=== PATIENT | female | born 1955 | race Caucasian/White ===

== ENCOUNTER → 2018-06-02 07:35 | Outpatient (CLI) | payer OTHER, SELFPAY ==
--- NOTE | 2018-06-02 07:39 | BI_ITS ---
MAMMOGRAPHY - BILATERAL SCREENING REASON FOR EXAM: Female, 62 years old. Routine annual screening examination. PERTINENT HISTORY: Non-contributory. TECHNIQUE: Digital bilateral breast erasto (3D mammographic acquisition) in the CC and MLO projections. 2-D mediolateral oblique (MLO) and craniocaudad (CC) views of both breasts were obtained. CAD: Full Field Digital Mammography with Computer Added Detection was performed. COMPARISON: Comparison is made with prior study dated May 14, 2017 and May 22, 2015. FINDINGS: Breast Composition: There are scattered areas of fibroglandular density. There are no dominant masses or suspicious calcifications. Stable bilateral axillary lymph nodes. No other significant abnormalities are identified. There has been no significant change since the prior study. BI/SCREENING MAMM (CAD), BILAT IMPRESSION: Stable bilateral screening mammogram. Yearly follow-up mammogram recommended. (A) ASSESSMENT CATEGORY: BIRADS Category 2: Benign. A letter regarding these results will be sent to the patient by the facility within 30 days. Approximately 10% of breast cancers are not detected by mammography. A normal mammogram should not delay biopsy of a clinically suspicious abnormality. [id number] Electronically Signed: Cordell Dai MD at 8:36 EDT Tel [phone], Service support ,
== END ==
PROVIDERS: Family Provider Family Medicine; PCP Family Medicine; Visit Provider Family Medicine
DX: Z12.31 Encounter for screening mammogram for malignant neoplasm of breast (principal)
CPT/HCPCS: 77063; 77067

== ENCOUNTER → 2018-11-30 16:20 | Outpatient (CLI) | payer OTHER, SELFPAY ==
--- NOTE | 2018-11-30 16:20 | MRI_ITS ---
STUDY: MRI LEFT FOREFOOT WITHOUT CONTRAST REASON FOR EXAM: Female, 63 years old. Pain. TECHNIQUE: Standardized fat and water weighted pulse sequences were obtained in all 3 orthogonal planes. COMPARISON: None. FINDINGS: There is degenerative arthrosis of the metatarsophalangeal joint of the hallux. There is cystic change in edema of the first metatarsal head and base of the first proximal phalanx Normal tibial and fibular sesamoids, with normal sesamoids-first metatarsal articulations. Normal interphalangeal joint of the hallux. Normal proximal and distal phalanges of the great toe. Normal medial and lateral heads of the flexor hallucis brevis tendons. Normal flexor and extensor hallucis longus tendons. Normal second through fifth metatarsophalangeal (MTP) joints. Normal interphalangeal joints of the second through fifth toes. Normal proximal, middle and distal phalanges of the second through fifth toes. There is intermetatarsal bursitis of the third interspace. There is adjacent 1.2 cm interdigital neuroma, series 3 image 17/36 Normal flexor and extensor tendons of the second through fifth toes. Normal visualized metatarsi. Normal intrinsic muscles of the forefoot. 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 Electronically Signed: Kailash Tay MD at 22:59 EDT , Service support ,
--- NOTE | 2018-11-30 16:20 | MRI_ITS ---
STUDY: MRI RIGHT FOREFOOT WITHOUT CONTRAST REASON FOR EXAM: Female, 63 years old. Pain. Evaluate neuroma. TECHNIQUE: Standardized fat and water weighted pulse sequences were obtained in all 3 orthogonal planes. COMPARISON: None. FINDINGS: There is degenerative arthrosis of the metatarsophalangeal joint of the hallux. Normal tibial and fibular sesamoids, with normal sesamoids-first metatarsal articulations. Normal interphalangeal joint of the hallux. Normal proximal and distal phalanges of the great toe. Normal medial and lateral heads of the flexor hallucis brevis tendons. Normal flexor and extensor hallucis longus tendons. Normal second through fifth metatarsophalangeal (MTP) joints. Normal interphalangeal joints of the second through fifth toes. Normal proximal, middle and distal phalanges of the second through fifth toes. There is intermetatarsal bursitis of the second and third interspaces, series 5 image 14/23. There is 0.6 cm interdigital neuroma at the second interspace, series 2 image 18/36. There is 0.9 cm interdigital neuroma at the third interspace, series 2 image 17/36. Normal flexor and extensor tendons of the second through fifth toes. Normal visualized metatarsi. Normal intrinsic muscles of the forefoot. 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 Electronically Signed: Kailash Tay MD at 22:54 EDT , Service support ,
== END ==
PROVIDERS: Family Provider Family Medicine; PCP Family Medicine; Referring Provider Podiatrist; Visit Provider Podiatrist
DX: G57.63 Lesion of plantar nerve, bilateral lower limbs (principal); D36.10 Benign neoplasm of peripheral nerves and autonomic nervous system, unspecified
CPT/HCPCS: 73718

== ENCOUNTER → 2020-09-18 12:36 | Outpatient (CLI) | payer MEDICARE, OTHER, SELFPAY ==
--- NOTE | 2020-09-18 12:40 | BI_ITS ---
MAMMOGRAPHY - BILATERAL SCREENING REASON FOR EXAM: Female, 64 years old. Routine annual screening examination. PERTINENT HISTORY: Non-contributory. TECHNIQUE: Digital bilateral breast aylin (3D mammographic acquisition) in the CC and MLO projections. 2-D mediolateral oblique (MLO) and craniocaudad (CC) views of both breasts were obtained. CAD: Full Field Digital Mammography with Computer Added Detection was performed. COMPARISON: Comparison is made with prior study dated 06/02/2018 and 05/14/2017. FINDINGS: Breast Composition: There are scattered areas of fibroglandular density. There are no dominant masses or suspicious calcifications. Stable benign-appearing bilateral axillary lymph nodes. No other significant abnormalities are identified. There has been no significant change since the prior study. BI/SCRN MAMM (CAD)W/AYLIN BILAT IMPRESSION: Stable bilateral screening mammogram. Yearly follow-up mammogram recommended. (A) ASSESSMENT CATEGORY: BIRADS Category 2: Benign. A letter regarding these results will be sent to the patient by the facility within 30 days. Approximately 10% of breast cancers are not detected by mammography. A normal mammogram should not delay biopsy of a clinically suspicious abnormality. [id number] Electronically Signed: Cordell Dai MD at 13:39 EST , Service support ,
== END ==
PROVIDERS: PCP Family Medicine; Referring Provider Family Medicine; Visit Provider Nurse Practitioner Family
DX: Z12.31 Encounter for screening mammogram for malignant neoplasm of breast (principal)
CPT/HCPCS: 77063; 77067

== ENCOUNTER → 2021-04-16 09:41 | Outpatient (CLI) | payer MEDICARE, OTHER, SELFPAY ==
--- NOTE | 2021-04-16 09:50 | RAD_ITS ---
STUDY: X-RAY - ESOPHAGUS (BARIUM SWALLOW) WITH FLUOROSCOPY REASON FOR EXAM: Female, 65 years old. DYSPHAGIA. TECHNIQUE: 19 view(s) of the esophagus were obtained following swallowing of barium. FLUOROSCOPY TIME (if supplied): (25 seconds) minutes/seconds COMPARISON: Comparison is made with prior study dated 03/02/2017. FINDINGS: There is no demonstrated esophageal foreign body. There is no demonstrated stricture or mucosal abnormality. Normal gastroesophageal junction, without a demonstrated hiatal hernia. The patient ingested a 12 mm tablet of barium without any difficulty. Normal visualized aortic arch and descending thoracic aorta. Normal visualized pulmonary parenchyma. Normal visualized osseous structures of the thorax. RAD/Esophagus Dual Contrast IMPRESSION: Normal plain film x-ray examination (barium swallow) of the esophagus. Electronically Signed: Cordell Dai MD at 8:34 EDT , Service support ,
== END ==
PROVIDERS: PCP Family Medicine; Referring Provider Otolaryngology Otolaryngology/Facial Plastic Surgery; Visit Provider Otolaryngology Otolaryngology/Facial Plastic Surgery
DX: R13.10 Dysphagia, unspecified (principal)
CPT/HCPCS: 74220; 74221

== ENCOUNTER 2021-04-25 19:25 | Emergency (ER) | payer MEDICARE, OTHER, SELFPAY ==
[2021-04-25 19:26] VITALS: BP 153/85; PULSE 68; RESP 17; TEMP 36.4; O2SAT 100; BMI 25.8
--- NOTE | 2021-04-25 20:17 | EX.ED.DYSGE1 ---
HPI History of Present Illness Chief Complaint: Chest Other Informant: patient Narrative Narrative: 65-year-old female presents to the emergency department with a sensation that she is being squeezed across her lower chest upper abdomen. She states that little over a month ago she went for a well check and they found a nodule on her neck. Chest CT scan was negative and she was referred to ENT. She is also experiencing some hoarseness. She states she had a ENT scope and a barium swallow. She was placed on Nexium. She states that when she eats she gets this squeezing sensation and sometimes she will vomit. She notes that she had a hamburger today and yesterday had pizza. These types of meals seem to make her symptoms worse she states that yesterday seem to be more intense and today was the worst. She ate around 1 this afternoon. She is mentally trying to eat 1 time per day because of how poorly she feels. [facility] Medical History (Updated 04/26/21 @ 00:[address] Geronimo Mao, DO) GERD (gastroesophageal reflux disease) Hypertension Home Medications aspirin 81 mg PO DAILY@0800 05/20/17 [History Last Taken 05/21/17] calcium carbonate-vitamin D3 [Calcium 500-Vit D3 200 Tablet] 1 ea PO DAILY 05/20/17 [History Last Taken Unknown] clopidogrel 75 mg PO DAILY 05/20/17 [History Last Taken 05/21/17] conjugated estrogens [Premarin] 0.9 mg PO DAILY 05/20/17 [History Last Taken Unknown] esomeprazole magnesium [Nexium] 40 mg PO DAILY 05/20/17 [History Last Taken Unknown] isosorbide mononitrate 30 mg PO DAILY 05/20/17 [History Last Taken 05/21/17] metoprolol tartrate 25 mg PO BID 05/20/17 [History Last Taken 05/21/17] multivitamin [Daily Multiple Vitamin] 1 ea PO DAILY 05/20/17 [History Last Taken Unknown] hydrocodone-acetaminophen 1 tab PO Q6H PRN PRN 3 Days #12 tablet 04/26/21 [Rx Last Taken Unknown] ondansetron 4 mg PO Q6H PRN PRN #15 tab 04/26/21 [Rx Last Taken Unknown] Allergy/AdvReac Type Severity Reaction Status Date / Time oxytetracycline Allergy Unknown Verified 04/25/21 19:30 [From Terramycin] Penicillins Allergy Unknown Verified 04/25/21 19:30 succinylcholine Allergy Unknown Verified 04/25/21 19:30 [From Anectine] Sulfa (Sulfonamide Allergy Rash Verified 04/25/21 19:30 Antibiotics) Surgical History H/O: hysterectomy Social History (Updated 04/25/21 @ 20:[address] Geronimo Mao, DO) Smoking Status: Never smoker substance use type: does not use ROS ROS ED Constitutional Constitutional ED: Denies chills or weight loss Eyes Eyes: Denies change in vision or diplopia ENT ENT ED: Denies ear pain, rhinorrhea or sore throat Cardiovascular Cardiovascular: Reports chest pain; Denies orthopnea, palpitations or racing heartbeat Respiratory/Chest Respiratory/Chest: Denies cough, dyspnea or orthopnea Gastrointestinal Gastrointestinal: Reports abdominal pain, nausea and vomiting; Denies diarrhea Genitourinary Genitourinary ED: Denies dysuria, hematuria or urinary frequency Musculoskeletal Musculoskeletal: Denies arthralgias or myalgias Integumentary Denies abscess or rash Neurologic Neurologic: Denies headache(s) or weakness Psychiatric Psychiatric: Denies anxiety, depression, suicidal ideation or suicidal thoughts Endocrine Endocrinology: Denies polydipsia, polyphagia or polyuria Allergic/Immunologic Allergic/Immunologic ED: Denies mouth swelling, tongue swelling or urticaria EXAM Physical Exam Const Vital Signs: 04/25/21 19:26 04/25/21 20:33 04/25/21 21:44 Temperature 97.6 F L Temperature Source Temporal Pulse Rate 68 68 Respiratory Rate 17 18 Respiratory Effort Normal Respiratory Pattern Normal Blood Pressure 153/85 H 161/61 H Blood Pressure Mean 107 94 Pulse Ox 100 100 Oxygen Delivery Method Room Air Room Air 04/25/21 23:25 Temperature Temperature Source Pulse Rate 70 Respiratory Rate 16 Respiratory Effort Respiratory Pattern Blood Pressure 157/66 H Blood Pressure Mean 96 Pulse Ox 98 Oxygen Delivery Method Room Air Positive well nourished and well developed General Appearance ED: well developed HEENT Reports normocephalic, head/scalp atraumatic and moist mucous membranes Eyes PERRL and EOMs intact bilaterally Neck no lymphadenopathy, supple and no JVD Resp normal respiratory effort and clear to auscultation bilaterally Cardio regular rate, regular rhythm and no murmurs GI GI Narrative: Patient reports pain in the right upper quadrant to palpation. My push on the left lower quadrant she tells me it hurts in her epigastrium and mid sternum. Palpation: soft Back/Spine no CVA tenderness and normal ROM Extremity normal to inspection General Extremety ED: Negative for edema General Extremity: Negative for edema Neuro oriented x3 and CN's II-XII intact bilaterally Sensorium / Orientation: alert Motor Exam: strength 5/5 throughout Psych mental status grossly normal Mood & Affect: anxious; Negative for depressed or tearful Skin no rashes or lesions noted and no wounds MDM MDM MDM Narrative Medical decision making narrative: White count 12.6. Gallbladder ultrasound showed a gallbladder wall at 3. No pericholecystic fluid and small possible sludge. Common bile duct at 5. Patient received a GI cocktail and said that her symptoms got better but the pain came back so she received morphine. CT the pelvis does not show anything obvious. Trace pericholecystic fluid noted on the CT but not on the ultrasound. Patient will most likely need endoscopy and HIDA scan. I will write for pain and nausea medication. Case was discussed with on-call surgeon Dr. Shin. Lab Data Attestation: I reviewed the patient's lab results. Labs: Laboratory Results - last 24 hr 04/25/21 04/25/21 20:28 20:28 WBC 12.6 H RBC 4.09 L Hgb 12.7 Hct 37.9 MCV 92.7 MCH 31.1 MCHC 33.5 RDW Std Deviation 42.5 RDW Coeff of Sherman 12.5 Plt Count 232 MPV 10.7 Immature Gran % (Auto) 0.300 Neut % (Auto) 81.6 H Lymph % (Auto) 11.0 L Mcdonald % (Auto) 6.3 Eos % (Auto) 0.3 Baso % (Auto) 0.5 Absolute Neuts (auto) 10.3 H Absolute Lymphs (auto) 1.39 Nucleated RBC % 0 Sodium 137 Potassium 3.2 L Chloride 103 Carbon Dioxide 24.0 Anion Gap 10 BUN 10 Creatinine 1.06 H Estim Creat Clear Calc 52.66 Est GFR (MDRD) Af Amer 67 Est GFR (MDRD) Non-Af 55 L BUN/Creatinine Ratio 9.4 L Glucose 128 H Calcium 8.9 Total Bilirubin 0.60 AST 15 ALT 14 Alkaline Phosphatase 77 Troponin I High Sens 5 Total Protein 7.7 Albumin 3.6 Globulin 4.1 Albumin/Globulin Ratio 0.9 Lipase 108 Radiography Diagnostic Testing: Radiology Impression Gallbladder Ultrasound 04/25/21 20:20 IMPRESSION: Borderline gallbladder thickness with minimal sludge. Positive sonographic Hathaway''s sign. Electronically Signed: Barrymari Bangura at 21:39 EDT Tel [phone], Service support , Chest X-Ray 04/25/21 21:12 IMPRESSION: Normal x-ray examination of the chest. Electronically Signed: Barry Bangura DO at 22:07 EDT Tel [phone], Service support , Abdomen/Pelvis CT 04/25/21 22:05 IMPRESSION: Hepatic cysts. Mild wall thickening of the gallbladder. Mild dilatation of the common bile duct. Trace pericholecystic fluid. Electronically Signed: Barry Bangura DO at 23:32 EDT Tel [phone], Service support , EKG Initial EKG: Attestation: I personally reviewed and interpreted this EKG as follows: Comments: Sinus rhythm at a rate of 70 bpm. No concerning features of ACS or ectopy noted Discharge Plan Triage Chief Complaint: Chest Other ED Provider: Geronimo Moa Dx/Rx/DC Orders Clinical Impression: Abdominal pain Instructions: HIDA Scan Prescriptions: New hydrocodone-acetaminophen [hydrocodone-acetaminophen] 1 TABLET tablet 1 tab PO Q6H PRN PRN (Reason: Pain) 3 Days Qty: 12 RF: 0 ondansetron [ondansetron] 4 MG tablet 4 mg PO Q6H PRN PRN (Reason: Nausea) Qty: 15 RF: 0 No Action multivitamin [Daily Multiple] 1 EACH tablet 1 ea PO DAILY RF: 0 isosorbide mononitrate 30 MG tablet extended release 24 hr 30 mg PO DAILY RF: 0 clopidogrel 75 MG tablet 75 mg PO DAILY RF: 0 aspirin 81 MG tablet 81 mg PO DAILY@0800 RF: 0 conjugated estrogens [Premarin] 0.9 MG tablet 0.9 mg PO DAILY RF: 0 esomeprazole magnesium [Nexium] 40 MG capsule 40 mg PO DAILY RF: 0 metoprolol tartrate 25 MG tablet 25 mg PO BID RF: 0 calcium carbonate-vitamin D3 [Calcium 500 + D] 1 EACH tablet 1 ea PO DAILY RF: 0 Primary Care Provider: Balwinder Clayton Referrals: Balwinder Clayton MD [Primary Care Provider] - Geronimo Shin MD [STAFF PHYSICIAN] - As soon as possible (To discussed endoscopy (EGD) and HIDA scan)
--- NOTE | 2021-04-25 20:19 | EKG12_ITS ---
Test Reason : CP Blood Pressure : / mmHG Vent. Rate : 070 BPM Atrial Rate : 070 BPM P-R Int : 182 ms QRS Dur : 098 ms QT Int : 386 ms P-R-T Axes : 042 -10 029 degrees QTc Int : 416 ms Normal sinus rhythm ST & T wave abnormality Abnormal ECG Confirmed by SAVANNA MOLIAN, EMMIE ([id number]), clinical editor JAYE TELLEZ ([id number]) on 04/28/2021 11:36:39 AM Referred By: JIMMIE Confirmed By:EMMIE CORRALES MD
--- NOTE | 2021-04-25 20:20 | US_ITS ---
STUDY: ABDOMINAL ULTRASOUND - RIGHT UPPER QUADRANT REASON FOR VISIT: Female, 65 years old PAIN- ABD TECHNIQUE: Ultrasound evaluation of the right upper quadrant was performed with real-time and static arzate-scale imaging. TECHNICAL QUALITY: Adequate. COMPARISON: None. FINDINGS: Liver: The liver measures 16.6 cm. There is normal echogenicity of the liver. The bile ducts are within normal limits. There is hepatic color flow. The direction of portal flow is hepatopetal. There is a 12 mm right hepatic cyst. Gallbladder: Distended gallbladder. The gallbladder wall measures 3 mm. There is a positive sonographic Hathaway''s sign. There is no pericholecystic fluid. There are no gallstones. Possible minimal sludge. Common Bile Duct (C.B.D.): The common bile duct measures 5 mm. Pancreas: Normal size of the head, body and tail of the pancreas. There is normal echogenicity of the pancreas. There is no demonstrated pancreatic mass or cyst. Right Kidney: Normal size of the right kidney. The right kidney measures 10.8 x 4.5 x 4.5 cm. Normal renal cortex. The right cortex measures 1.5 cm. There is no demonstrated renal mass or cyst. There is no right hydronephrosis. US/Gallbladder IMPRESSION: Borderline gallbladder thickness with minimal sludge. Positive sonographic Hathaway''s sign. Electronically Signed: Barry Bangura DO at 21:39 EDT Tel [phone], Service support ,
[2021-04-25 20:37] LABS: Absolute Lymphocyte Count 1.39 X10^3/uL (0.83-4.51); Absolute Neutrophil Count 10.3 X10^3/uL (2.0-7.7); Basophil# 0.06 X10^3/uL; Basophil% 0.5 % (0-1); Eosinophil# 0.04 X10^3/uL; Eosinophils% 0.3 % (0-5); Hematocrit 37.9 % (37-47); Hemoglobin 12.7 g/dL (12.0-15.0); Lymphocyte # 1.39 X10^3/ul (0.83-4.51); Mean Corp Hgb Conc 33.5 g/dL (32-36); Mean Corpuscular Hgb 31.1 pg (27.0-32.0); Mean Corpuscular Volume 92.7 fL (81-99); Mean Platelet Vol. 10.7 fl (6.2-12.0); Monocyte# 0.79 X10^3/uL; Monocyte% 6.3 % (0-10); NRBC Flagged by Analyzer 0 % (0-5); Neutrophil # 10.26 X10^3/uL (2.7-7.7); Neutrophil % 81.6 % (47-70); Platelet Count 232 K/mm3 (150-450); RBC Distribution Width CV 12.5 % (11.6-14.6); RBC Distribution Width SD 42.5 fl (35.1-43.9); Red Blood Count 4.09 M/mm3 (4.2-5.4); White Blood Count 12.6 K/mm3 (4.4-11.0)
[2021-04-25 20:56] LABS: ALB/GLOB Ratio 0.9 RATIO (0.9-2.4); AST(SGOT) 15 U/L (15-37); Alanine Aminotransfer ALT/SGPT 14 U/L (13-56); Albumin, Serum 3.6 g/dL (3.2-5.0); Alkaline Phosphatase 77 U/L (45-117); Anion Gap 10 (5-15); BUN 10 mg/dL (7-18); BUN/Creat Ratio 9.4 RATIO (10-20); Calcium,Total 8.9 mg/dL (8.5-10.1); Chloride 103 mmol/L (98-107); Creatinine, Serum 1.06 mg/dL (0.55-1.02); EST Glomerular Filtration Rate 55 mL/min (>60); Est Glom Filt Rate - Afr Amer 67 mL/min (>60); Estimated Creatinine Clearance 52.66 ml/min; Globulin 4.1 g/dL (2.2-4.2); Glucose 128 mg/dL (74-106); Lipase 108 U/L (73-393); Potassium 3.2 mmol/L (3.5-5.1); Protein, Total 7.7 g/dL (6.4-8.2); Sodium Level 137 mmol/L (136-145); Troponin-I HS 5 pg/mL (3.0-54.0)
--- NOTE | 2021-04-25 21:12 | RAD_ITS ---
STUDY: X-RAY CHEST REASON FOR EXAM: Female, 65 years old. Chest pain TECHNIQUE: Frontal view COMPARISON: 05/26/2017. FINDINGS: The lungs are clear and expanded. There is no demonstrated pleural abnormality. Normal size heart. Normal mediastinum and bola. Normal visualized pulmonary arteries. Normal visualized aortic arch and descending thoracic aorta. Normal visualized thoracic spine. Normal visualized ribs, clavicles, and shoulders. There is no demonstrated abnormality of the visualized soft tissue structures of the upper abdomen. RAD/Chest 1 View (Portable) IMPRESSION: Normal x-ray examination of the chest. Electronically Signed: Barry Bangura DO at 22:07 EDT Tel [phone], Service support ,
[2021-04-25] MEDS: Mag Hydrox/Al Hydrox/Simeth 30 ML UDC PO (21:25)
[2021-04-25 21:44] VITALS: BP 161/61; PULSE 68; RESP 18; O2SAT 100
--- NOTE | 2021-04-25 22:05 | CT_ITS ---
STUDY: CT ABDOMEN AND PELVIS WITH CONTRAST REASON FOR EXAM: Female, 65 years old. Abdominal pain RADIATION DOSAGE (If Supplied By Facility): CTDIvol = ( 12.44 ) mGy, DLP = ( 712.50 ) mGycm TECHNIQUE: Transaxial images were obtained from the dome of the diaphragm to the symphysis pubis without oral contrast. IV 100mL Isovue-370 was administered. Sagittal and coronal images were reconstructed. Individualized dose optimization techniques were used for this CT. COMPARISON: None. FINDINGS: The visualized lung bases are unremarkable. The visualized portions of the heart are within normal limits. Cysts in the liver. Wall thickening of the gallbladder. Trace pericholecystic fluid. Mild prominence of the extrahepatic biliary system. The common bile duct measures 9 mm. Normal spleen. Normal pancreas. Normal bilateral adrenal glands. Normal right kidney. Normal left kidney. Normal visualized stomach. Normal small intestine. Normal colon. The appendix is visualized and appears normal. Normal abdominal aorta. Normal inferior vena cava. Normal retroperitoneum. Normal urinary bladder. Normal abdominal wall. Normal osseous structures. CT/Abdomen/Pelvis W IV Cont ONLY IMPRESSION: Hepatic cysts. Mild wall thickening of the gallbladder. Mild dilatation of the common bile duct. Trace pericholecystic fluid. Electronically Signed: Barry Bangura DO at 23:32 EDT Tel [phone], Service support ,
[2021-04-25 23:25] VITALS: BP 157/66; PULSE 70; RESP 16; O2SAT 98
[2021-04-25] MEDS: Morphine 4 MG/ML Syringe IV (23:53)
[2021-04-26 00:33] VITALS: BP 157/74; PULSE 70; RESP 20; O2SAT 97
== END 2021-04-26 00:36 | disposition home or self-care (01) ==
PROVIDERS: Emergency Provider Emergency Medicine; PCP Family Medicine
DX: R10.11 Right upper quadrant pain (principal); I10 Essential (primary) hypertension; K21.9 Gastro-esophageal reflux disease without esophagitis; Z90.710 Acquired absence of both cervix and uterus; Z79.82 Long term (current) use of aspirin; Z79.02 Long term (current) use of antithrombotics/antiplatelets; Z79.899 Other long term (current) drug therapy
CPT/HCPCS: 71045; 74177; 76705; 80053; 83690; 84484; 85025; 93005; 96374; 99283; Q9967; A4216

== ENCOUNTER → 2021-05-12 12:41 | Outpatient (CLI) | payer MEDICARE, OTHER, SELFPAY ==
[2021-05-12 13:03] LABS: Hematocrit 41.2 % (37-47); Hemoglobin 13.2 g/dL (12.0-15.0); Mean Corpuscular Hgb 30.3 pg (27.0-32.0); Mean Corpuscular Volume 94.7 fL (81-99); Mean Platelet Vol. 10.1 fl (6.2-12.0); Platelet Count 284 K/mm3 (150-450); RBC Distribution Width CV 12.3 % (11.6-14.6); RBC Distribution Width SD 42.8 fl (35.1-43.9); Red Blood Count 4.35 M/mm3 (4.2-5.4); White Blood Count 5.2 K/mm3 (4.4-11.0)
[2021-05-12 13:17] LABS: ALB/GLOB Ratio 0.9 RATIO (0.9-2.4); AST(SGOT) 13 U/L (15-37); Alanine Aminotransfer ALT/SGPT 13 U/L (13-56); Albumin, Serum 3.7 g/dL (3.2-5.0); Alkaline Phosphatase 76 U/L (45-117); Anion Gap 6 (5-15); BUN 8 mg/dL (7-18); BUN/Creat Ratio 7.8 RATIO (10-20); Calcium,Total 9.2 mg/dL (8.5-10.1); Chloride 104 mmol/L (98-107); Creatinine, Serum 1.02 mg/dL (0.55-1.02); EST Glomerular Filtration Rate 58 mL/min (>60); Est Glom Filt Rate - Afr Amer 70 mL/min (>60); Globulin 3.9 g/dL (2.2-4.2); Glucose 96 mg/dL (74-106); Lipase 133 U/L (73-393); Protein, Total 7.6 g/dL (6.4-8.2); Sodium Level 139 mmol/L (136-145)
== END ==
PROVIDERS: PCP Family Medicine; Referring Provider Surgery; Visit Provider Surgery
DX: Z01.818 Encounter for other preprocedural examination (principal); R10.13 Epigastric pain; K82.8 Other specified diseases of gallbladder; R10.9 Unspecified abdominal pain
CPT/HCPCS: 36415; 80053; 83690; 85027

== ENCOUNTER 2021-05-13 07:54 | Day surgery (SDC) | payer MEDICARE, OTHER, SELFPAY ==
[2021-05-13] VITALS (10 sets, daily range): BP systolic 117–156; BP diastolic 58–71; PULSE 70–85; RESP 16–18; TEMP 36.3–36.9; O2SAT 96–100; BMI 23.7
--- NOTE | 2021-05-13 | GALL_PTH ---
PATIENT: PALAK MUHAMMAD LOC: [facility] – [place] U#:[id number] AGE/SX: 65/F ROOM: RE05/13/[address]: Dr. Abbe Donovan MD : [id number] BED: DIS: 05/13/2021 SPEC #: [id number] RECD: 05/13/21 13:00 STATUS: PIERO QUEENAydin #: [id number] CHAYA: 05/13/21 00:[address]: Abbe Donovan DEPT: SURGICAL PATHOLOGY RECD BY: Nicolas Panda ENTERED: 05/14/21 09:55 SP TYPE: JORDYN CHAUDHARY DR: Dr. Balwinder Clayton MD Tissues: Gallbladder, NOS Procedures: Surgery Specimen Level III HEADER OPERATION: Laparoscopic cholecystectomy with IOC PRE-OP DIAGNOSIS: Biliary dyskinesia TISSUE SUBMITTED: Gallbladder MICROSCOPIC DIAGNOSIS Gallbladder, cholecystectomy: Chronic cholecystitis and cholelithiasis. AM:angie 05/15/2021 MICROSCOPIC DESCRIPTION Slides are reviewed. GROSS DESCRIPTION Received is one container labeled with the patient's name and designated gallbladder. The specimen consists of a gallbladder measuring 11 cm in length and up to 2.5 cm in diameter. The external surface is pink-egan, smooth and glistening for the most part. Focally it is granular, hemorrhagic and contains cautery artifact. The gallbladder contains bile and one small stone in the gallbladder measuring 0.3 cm in greatest dimension. The mucosa is bile-stained and without any mass lesions. The gallbladder wall measures up to 0.3 cm in thickness. Credit Verifier sections from the gallbladder and the cystic duct are submitted in one cassette. / SJ:rg 05/14/21 TC:3 CPT: 47997
[2021-05-13] MEDS: Lactated Ringers 1,000 ML 100 ML IV ×2 (08:15→13:40)
[2021-05-13] MEDS: Vancomycin IV 1,000 MG/200 ML BAG 200 MG IV (08:42)
--- NOTE | 2021-05-13 10:28 | HP.PCM_ITS ---
History and Physical Date of Admission: 05/13/21 Intake Visit Reasons: Abdominal Pain Chief Complaint: RUQ pain, abn hida Manager Video Required: No Is patient in pain?: Yes (RUQ ) Pain scale (1-10): 3 Allergies clindamycin [From Cleocin] Allergy (Mild, Verified 05/12/21 12:25) rash oxytetracycline [From Terramycin] Allergy (Verified 04/25/21 19:30) Unknown Penicillins Allergy (Verified 04/25/21 19:30) Unknown succinylcholine [From Anectine] Allergy (Verified 04/25/21 19:30) Unknown Sulfa (Sulfonamide Antibiotics) Allergy (Verified 04/25/21 19:30) Rash Medications calcium carbonate-vitamin D3 [Calcium 500-Vit D3 200 Tablet] 1 ea PO DAILY 05/20/17 [History Confirmed 05/12/21] multivitamin [Daily Multiple Vitamin] 1 ea PO DAILY 05/20/17 [History Confirmed 05/12/21] hydrocodone-acetaminophen 1 tab PO Q6H PRN PRN 3 Days #12 tablet 04/26/21 [Rx Confirmed 05/12/21] conjugated estrogens 0.9 mg tablet 0.9 mg PO .qod tab 05/12/21 [History Confirmed 05/12/21] multivitamin,min-ferrous fumarate 3.3 mg-folic 25 mcg-herb tablet tab PO 05/12/21 [History Confirmed 05/12/21] pantoprazole 20 mg tablet,delayed release 20 mg PO DAILY tab 05/12/21 [History Confirmed 05/12/21] trazodone 50 mg tablet 50 mg PO BID PRN tab 05/12/21 [History Confirmed 05/12/21] Is last menstrual period known: No Post menopausal: Yes Patient : No PFSH Medical History (Updated 05/12/21 @ 12:21 by Brina Reid) Endometriosis GERD (gastroesophageal reflux disease) Hypertension Osteoarthritis Surgical History (Updated 05/12/21 @ 12:21 by Brina Reid) H/O: hysterectomy History of appendectomy History of bladder surgery History of cardiac catheterization (~2017) History of laparoscopy Family History (Updated 05/12/21 @ 12:22 by Brina Reid) Father CVA (cerebral vascular accident) Mother CHF (congestive heart failure) Social History (Updated 09/17/21 @ 20:[address] Geronimo Mao, DO) Smoking Status: Never smoker substance use type: does not use HPI HPI HPI: PALAK MUHAMMAD, is a 65 F who presents to the office today for ongoing surgical consultation regarding epigastric pain. The patient eats pizza and then on April 25 and severe epigastric pain for that reason was seen in the emergency room. White blood cell count was 12.6. Liver function test normal. CT scan was abnormal with wall thickening the gallbladder trace pericholecystic fluid the common bile duct was 9 mm. Potassium was low at 3.2. She had cysts in the liver. Then on the same day she had a gallbladder ultrasound. Borderline gallbladder wall 3 mm. Common bile duct 5 mm. Hathaway sign positive. She saw Dr. Tavo Cardona on April 16, 2021 and a barium swallow was obtained that was normal. At the [facility] on May 09, 2020 when she had a hepatobiliary scan showing nonvisualization of the gallbladder. She claims that her stool can vary in color and that her urine can vary in color. ROS General General: Yes weight change and fatigue; No appetite, colon cancer, breast cancer or weakness HEENT HEENT: Yes difficulty swallowing and eye surgery; No eye injury, swollen glands or hoarseness Endo Endocrine: No thyroid disease, diabetes mellitus, thyroid cancer, Hair loss, heat intolerance or cold intolerance Musc Musculoskeletal: Yes arthritis; No back problems, rheumatoid arthritis, gout or joint pain Cardio Cardiovascular: No murmur, pacemaker, heart disease, atrial fibrillation, high blood pressure, heart attack, heart stent, palpitations, shortness of breat with exertion or chest pain Psych Psychiatric: No depression, anxiety or hearing voices Resp Respiratory: No shortness of breath, No sleep apnea, No cough, No COPD, No asthma, No emphysema and No wheezing Gastro Gastrointestinal: Yes abdominal pain, Yes nausea or vomiting, No diarrhea, No constipation, No blood in stool, Yes acid reflux, No hemorrhoids, No ulcers, Yes gallbladder problem and No black,tarry stools Miki Hematologic: No blood thinners, No blood disorders, No bleeding, No anemia and No blood clots Neuro Neurologic: No weakness Exam Const General: cooperative, healthy appearing, comfortable and no acute distress Nutritional Appearance: average body habitus and well nourished Orientation: alert and awake [facility] Head: normal to inspection Eyes General: appearance normal, both eyes and all related structures Chest Chest palpation & inspection: normal inspection of the chest Resp Effort & Inspection: normal respiratory effort Auscultation: clear to auscultation bilaterally Cardio Rate: regular rate Rhythm: regular rhythm GI Palpation: soft and no hepatosplenomegaly Auscultation: normal bowel sounds Musc Cervical Spine: normal cervical lordosis Skin General: no rashes or lesions noted Neuro General: patient alert and patient awake Extrem General: no calf tenderness Psych Appearance: grossly normal Assessment and Plan Assessment and Plan (1) Biliary dyskinesia: Status: Acute Orders: Orders: Lipase Today Plan Details Other Orders: Orders: Hepatobilliary Img w/Pharm Int Today R10.13 Comprehensive Metabolic Profil Today Z01.818 Lipase Today R10.9 CBC-Complete Blood Cnt No Diff Today R10.13 Additional Comments: I am suspicious that the patient may have had sludge or small stones causing a temporary gallbladder/common bile duct obstruction. She has an abnormal CT and an abnormal gallbladder ultrasound and an abnormal hepatobiliary scan. I recommend to her a laparoscopic cholecystectomy with selective cholangiography and I discussed the technique, benefit, risk, alternatives. She has had an opportunity to ask and have questions answered. We will schedule and expedite her care. I very much appreciate the kind opportunity of assisting with her surgical management. Copy: Dr. Tian Donovan M.D., F.A.C.S. I have re-examined the patient. There are no clinical changes since date of exam.
--- NOTE | 2021-05-13 10:28 | EX.PCM.DISCH ---
Discharge Instructions Procedure General Surgery Diet Discharge Diet: Light diet - advance as tolerated (if you have questions about your diet instructions, please talk to you doctor.) Activity Discharge Activity: May Not Drive (for 3-5 days or while taking narcotic pain medicine.) May shower in (days): 1 Lifting Restrictions: 10 pounds Dressing / Incision Call your doctor if your incision/area has: Continuous Slow Oozing, Sudden Increased Bleeding, Increased Pain/ Swelling, Increased Redness and Foul Smelling Discharge Call your doctor if you observe: Fever of 101 or Higher Suture Line Care: Avoid Pulling/Pushing and Avoid Pinching/Bending Additional Dressing/Incision Instructions:: Change or remove dressing in 4 days. Leave steri-strips in place for 1 week. Follow Up Care Please Follow Up With: Abbe Donovan MD When: Call [phone] to make an appointment to be seen in about 10 days. Test Results: Test results from this visit will be discussed in further detail at your follow-up appointment, if applicable. Discharge Plan Admission Attending Provider: Abbe Donovan Primary Care Provider: Balwinder Clayton Discharge Orders/Prescriptions Prescriptions: No Action trazodone 50 mg tablet 50 mg PO BID PRN (Reason: Sleep) RF: 0 pantoprazole 20 mg tablet,delayed release (DR/EC) 20 mg PO DAILY RF: 0 multivitamin [Daily Multiple] 1 EACH tablet 1 ea PO DAILY RF: 0 calcium carbonate-vitamin D3 [Calcium 500 + D] 1 EACH tablet 1 ea PO DAILY RF: 0 Premarin 0.9 mg tablet 0.9 mg PO .qod RF: 0 hydrocodone-acetaminophen [hydrocodone-acetaminophen] 1 TABLET tablet 1 tab PO Q6H PRN PRN (Reason: Pain) 3 Days Qty: 12 RF: 0 multivitamin [Hair,Nails and Skin Vitamin] Tablet 1 tab PO DAILY RF: 0
[2021-05-13] MEDS: Ciprofloxacin 400 MG/200 ML BAG 200 MG IV (10:29)
--- NOTE | 2021-05-13 11:05 | RAD_ITS ---
INDICATION: PAIN EXAMINATION/TECHNIQUE: 2 limited spot intraoperative films are presented for evaluation. Total Fluoroscopic Time: 50.3 seconds Number of Fluoroscopic Images: 2 Cumulative dose: 36.87 mGy COMPARISON: 04/25/2021. FINDINGS: Intraoperative spot fluoroscopic images were obtained demonstrating contrast injection into the cystic duct. Unremarkable opacification of the cystic duct is seen. Prominent intra and extrahepatic biliary tree visualized with delayed opacification of the common bile duct most likely positional, Shouldering with suggestion of circumferential narrowing of the central common bile duct and central pancreatic duct is visualized on series 1-1 image 173/186, unremarkable opacification of the duodenum. The differential diagnosis would include a central stricture or a mass, on correlation with CT scan images there is a 1.2 cm area of low attenuation visualized in the neck of the pancreas anterior to this location seen on axial series 2 image 53/114 after changing the window settings to W:150 and L:46. Also seen on sagittal series 602 image 68/153. Please note that this could be artifactual due to underlying bowel RAD/Cholangiogram/ O R,Initial IMPRESSION: Intraoperative cholangiogram demonstrates circumferential narrowing in the central common bile and pancreatic ducts, differential diagnosis would include a stricture, stone or a mass. Electronically Signed: Noe Abraham MD at 8:25 EDT Tel , Service support ,
--- NOTE | 2021-05-13 11:05 | RAD_ITS ---
INDICATION: CHOLANGIOGRAM AFTER GLUCAGON GIVEN EXAMINATION/TECHNIQUE: limited spot intraoperative films are presented for evaluation. Total Fluoroscopic Time: Not provided. Number of Fluoroscopic Images: 6 COMPARISON: 04/25/2021. FINDINGS: Intraoperative fluoroscopic images obtained after contrast injection into the cystic duct, unremarkable opacification of the cystic duct, a focal filling defect is visualized in the distal cystic duct at location of the catheter tip, this could be due to tortuosity/angulation in the duct caused by the catheter, marked distention of the common bile duct and common hepatic duct is visualized, multiple filling defects visualized within the central common bile duct and at the level of the ampulla suggestive of stones best visualized on series 1-2 image 54/54. Unremarkable opacification of the duodenum, the proximal pancreatic duct is visualized. RAD/Cholangiogram O.R./Subsequent IMPRESSION: Intraoperative cholangiogram demonstrates marked dilation of the common bile duct with central filling defects suggestive of stones. Electronically Signed: Noe Abraham MD at 8:10 EDT Tel , Service support ,
--- NOTE | 2021-05-13 12:21 | PCM.OPRPT ---
Problems Associated Problem List Diagnoses (1) Biliary dyskinesia: Report of Operation Date of Procedure: 05/13/21 Pre-Operative Diagnosis: Biliary dyskinesia Post-Operative Diagnosis: Acute and chronic cholecystitis cholelithiasis Surgery/Procedure Performed:: Laparoscopic cholecystectomy with cholangiograms Description of Surgical Findings:: Timeout and informed consent was obtained. 65-year-old female was taken to the operating placement table underwent general endotracheal intubation esthesia. Vancomycin 1 g given intravenous preoperatively and ciprofloxacin 4 mg were given intravenously. The abdomen was sterilely prepped and draped. 0.5% Marcaine was used as a local anesthetic. Throughout the procedure a total of 30 cc was used. Skin sites were preanesthetized. A vertical infraumbilical incision was created holding sutures of 0 Vicryl placed varies needle inserted saline drop test performed the abdomen was insufflated with CO2 to a pressure of 10 mmHg pressure. 10 mm trocar was inserted. 10 manually laparoscope inserted. The abdomen is inspected CO2 to a pressure of 10 mmHg pressure. Direct visualization 5 mm trochars were placed in the epigastric mid abdomen right upper quadrant. The gallbladder was very thick-walled it was distracted blunt dissection with the Mobile at the infundibulum until clearly the cystic duct cystic artery identified critical view was achieved. A Hem-o-sterling clip was placed on the cystic duct stump incision in the cystic duct and a 14-gauge Angiocath was used to insert a cholangiogram catheter then into the cystic duct which was secured with a hemolock clip. Fluoroscopic control cholangiograms were obtained demonstrating initial backflow into the right and left hepatic duct and proper hepatic duct. Eventually distal flow was achieved. There was backward flow into the pancreatic duct. The patient received a milligram of glucagon. There were 3 very small filling defects these became less apparent with flushing. I did not feel that these very small structures warranted the risk of a common bile duct exploration. Angiogram catheter was removed. 2 Hem-o-sterling clips placed on the cystic duct stump prior to transecting it. The cystic artery was clipped twice proximally prior to transecting it. The gallbladder was dissected free from the liver bed using electrocautery complete hemostasis was intact. The gallbladder was placed in a retrieval bag. The right upper quadrant was nicely hemostatic it was irrigated and aspirated free of excess fluid the gallbladder was exited the umbilicus. Upon so doing inspection revealed that there was a stone lodged within the neck of the gallbladder. The abdomen was inspected hemostasis was intact the abdomen was allowed to deflate of the CO2 through an antiviral valve. The fascia at the umbilicus approximated with 2 [id number] sutures of 0 Vicryl. Skin edges approximated with interrupted 4-0 Monocryl subdermal stitches. Steri-Strips Telfa OpSite dressings applied. Sponge and instrument and needle counts were reported to the surgeon to be correct. Blood loss was minimal. Specimen gallbladder. Drains none. Blood loss minimal. The patient was taken to the recovery area in satisfactory addition without apparent complication Abbe Donovan M.D., F.A.C.S. Surgeon: Abbe Donovan Type of Anesthesia: General and Local Anesthesiologist: Ingris Guthrie
[2021-05-13] MEDS: Bupivacaine Mpf 0.5% 30 ML VIAL (12:29)
[2021-05-13] MEDS: HYDROcodone Bitartrate/Apap 5/325 Tablet PO (14:37)
--- NOTE | 2021-05-13 15:04 | SUR.PHASEII ---
RN HAS CALLED MD'S OFFICE TO ASK ABOUT DC ORDER. PT. FEELS READY TO GO.
== END 2021-05-13 15:56 | disposition home or self-care (01) ==
LOC: SDC 07:55 → AC 07:55
PROVIDERS: PCP Family Medicine; Referring Provider Surgery; Visit Provider Surgery
PROC: (CPT 47610; principal; 2021-05-13 10:45)
DX: K80.10 Calculus of gallbladder with chronic cholecystitis without obstruction (principal); Z88.0 Allergy status to penicillin; Z88.1 Allergy status to other antibiotic agents; Z88.2 Allergy status to sulfonamides; K21.9 Gastro-esophageal reflux disease without esophagitis; I10 Essential (primary) hypertension; M19.90 Unspecified osteoarthritis, unspecified site
CPT/HCPCS: 47563; 74300; 74301; 76000; 88304; J7120; J0744; J1610; J2405

== ENCOUNTER → 2021-07-02 16:19 | Outpatient (CLI) | payer MEDICARE, OTHER, SELFPAY ==
[2021-07-02 17:35] LABS: Absolute Lymphocyte Count 2.92 X10^3/uL (0.83-4.51); Absolute Neutrophil Count 3.5 X10^3/uL (2.0-7.7); Basophil# 0.07 X10^3/uL; Eosinophil# 0.16 X10^3/uL; Eosinophils% 2.2 % (0-5); Hematocrit 37.1 % (37-47); Hemoglobin 12.2 g/dL (12.0-15.0); Lymphocyte # 2.92 X10^3/ul (0.83-4.51); Lymphocyte % 40.9 % (19-41); Mean Corp Hgb Conc 32.9 g/dL (32-36); Mean Corpuscular Hgb 30.9 pg (27.0-32.0); Mean Corpuscular Volume 93.9 fL (81-99); Mean Platelet Vol. 10.3 fl (6.2-12.0); NRBC Flagged by Analyzer 0 % (0-5); Neutrophil # 3.49 X10^3/uL (2.7-7.7); Neutrophil % 48.9 % (47-70); Platelet Count 272 K/mm3 (150-450); RBC Distribution Width CV 12.8 % (11.6-14.6); RBC Distribution Width SD 44.4 fl (35.1-43.9); Red Blood Count 3.95 M/mm3 (4.2-5.4); White Blood Count 7.1 K/mm3 (4.4-11.0)
[2021-07-02 17:48] LABS: ALB/GLOB Ratio 0.8 RATIO (0.9-2.4); AST(SGOT) 14 U/L (15-37); Alanine Aminotransfer ALT/SGPT 11 U/L (13-56); Albumin, Serum 3.4 g/dL (3.2-5.0); Alkaline Phosphatase 71 U/L (45-117); Anion Gap 6 (5-15); BUN 11 mg/dL (7-18); Calcium,Total 8.9 mg/dL (8.5-10.1); Chloride 105 mmol/L (98-107); Cholesterol 263 mg/dL (200); Creatinine, Serum 0.92 mg/dL (0.55-1.02); EST Glomerular Filtration Rate 65 mL/min (>60); Est Glom Filt Rate - Afr Amer 79 mL/min (>60); Glucose 90 mg/dL (74-106); High Density Lipoprotein 57 mg/dL; Potassium 3.6 mmol/L (3.5-5.1); Protein, Total 7.4 g/dL (6.4-8.2); Sodium Level 140 mmol/L (136-145); Triglycerides 198 mg/dL; Very Low Density Lipoprotein 40 mg/dL (5-40)
== END ==
PROVIDERS: PCP Family Medicine; Referring Provider Family Medicine; Visit Provider Family Medicine
DX: K21.9 Gastro-esophageal reflux disease without esophagitis (principal); E78.5 Hyperlipidemia, unspecified
CPT/HCPCS: 36415; 80053; 80061; 85025

== ENCOUNTER → 2021-07-28 17:16 | Outpatient (CLI) | payer MEDICARE, OTHER, SELFPAY ==
--- NOTE | 2021-07-28 17:20 | RAD_ITS ---
STUDY: X-RAY - LEFT SHOULDER REASON FOR EXAM: Female, 65 years old. PAIN TECHNIQUE: 4 view(s) of the left shoulder. COMPARISON: None. FINDINGS: There is mild degenerative arthrosis of the glenohumeral articulation. There is mild degenerative arthrosis of the acromioclavicular joint without inferior osseous spur formation. Normal acromion. Normal humeral head and visualized proximal humerus. The soft tissue structures are unremarkable. There is no demonstrated fracture. Normal visualized pulmonary apex. RAD/Shoulder min 2 Views IMPRESSION: Mild glenohumeral and acromioclavicular DJD. No finding of fracture. Electronically Signed: Ryan Alvarado MD at 0:29 EST Tel , Service support ,
== END ==
PROVIDERS: PCP Family Medicine; Referring Provider Family Medicine; Visit Provider Family Medicine
DX: M19.012 Primary osteoarthritis, left shoulder (principal)
CPT/HCPCS: 73030

== ENCOUNTER → 2022-03-09 | Outpatient (CLI) | payer MEDICARE, OTHER, SELFPAY ==
--- NOTE | 2022-03-09 15:14 | RAD_ITS ---
EXAM: XR LEFT TIBIA AND FIBULA, 2 VIEWS CLINICAL INDICATION: PAIN TECHNIQUE: Frontal and lateral views of the left tibia and fibula. This report was created using [employer] report generation technology. COMPARISON: None. FINDINGS: BONES/JOINTS: Unremarkable. No acute fracture. No subluxation. Normal alignment. Preservation of the joint space. No sclerotic or destructive changes observed. SOFT TISSUES: Unremarkable. No soft tissue swelling or gas. No radiopaque foreign body. RAD/Tibia & Fibula 2 Views IMPRESSION: Negative left tibia and fibula x-rays. Electronically Signed: Dom Avila MD at 16:22 EDT ,
== END | disposition home or self-care (01) ==
PROVIDERS: PCP Family Medicine; Referring Provider Family Medicine; Visit Provider Family Medicine
DX: M79.605 Pain in left leg (principal)
CPT/HCPCS: 73590

== ENCOUNTER → 2023-03-01 | Outpatient (CLI) | payer MEDICARE, OTHER, SELFPAY ==
--- NOTE | 2023-03-01 15:17 | RAD_ITS ---
EXAM: XR LEFT ELBOW COMPLETE, 3 OR MORE VIEWS CLINICAL INDICATION: fall, pain TECHNIQUE: Frontal, lateral and oblique views of the left elbow. COMPARISON: No relevant prior studies available. FINDINGS: BONES/JOINTS: Unremarkable. There is no displacement of the anterior or posterior fat pads. No acute fracture. No subluxation. Normal alignment. Preservation of the joint space. No destructive or sclerotic lesions. SOFT TISSUES: Unremarkable. No soft tissue swelling or gas. No radiopaque foreign body. RAD/Elbow min 3 Views IMPRESSION: Negative left elbow; no acute fracture or dislocation. Electronically Signed: Edgar Rai MD at 23:53 EDT ,
== END | disposition home or self-care (01) ==
PROVIDERS: PCP Family Medicine; Referring Provider Family Medicine; Visit Provider Family Medicine
DX: M25.522 Pain in left elbow (principal)
CPT/HCPCS: 73080

== ENCOUNTER → 2023-03-09 | Outpatient (CLI) | payer MEDICARE, OTHER, SELFPAY ==
[2023-03-09 15:28] LABS: Absolute Lymphocyte Count 2.54 X10^3/uL (0.83-4.51); Absolute Neutrophil Count 2.7 X10^3/uL (2.0-7.7); Basophil# 0.07 X10^3/uL; Basophil% 1.2 % (0-1); Eosinophils% 1.7 % (0-5); Hematocrit 40.7 % (37-47); Hemoglobin 12.8 g/dL (12.0-15.0); Lymphocyte # 2.54 X10^3/ul (0.83-4.51); Lymphocyte % 42.3 % (19-41); Mean Corp Hgb Conc 31.4 g/dL (32-36); Mean Corpuscular Hgb 30.3 pg (27.0-32.0); Mean Corpuscular Volume 96.4 fL (81-99); Monocyte# 0.56 X10^3/uL; Monocyte% 9.3 % (0-10); NRBC Flagged by Analyzer 0 % (0-5); Neutrophil # 2.73 X10^3/uL (2.7-7.7); Neutrophil % 45.3 % (47-70); Platelet Count 239 K/mm3 (150-450); RBC Distribution Width CV 12.9 % (11.6-14.6); RBC Distribution Width SD 45.7 fl (35.1-43.9); Red Blood Count 4.22 M/mm3 (4.2-5.4)
[2023-03-09 16:00] LABS: ALB/GLOB Ratio 1.1 RATIO (0.9-2.4); AST(SGOT) 20 U/L (15-37); Alanine Aminotransfer ALT/SGPT 13 U/L (13-56); Albumin, Serum 3.7 g/dL (3.2-5.0); Alkaline Phosphatase 96 U/L (45-117); Anion Gap 5 (5-15); BUN 13 mg/dL (7-18); BUN/Creat Ratio 13.9 RATIO (10-20); Calcium,Total 9.2 mg/dL (8.5-10.1); Chloride 106 mmol/L (98-107); Cholesterol 239 mg/dL (200); Creatinine, Serum 0.93 mg/dL (0.55-1.02); EST Glomerular Filtration Rate 64 mL/min (>60); Est Glom Filt Rate - Afr Amer 77 mL/min (>60); Globulin 3.5 g/dL (2.2-4.2); Glucose 87 mg/dL (74-106); High Density Lipoprotein 64 mg/dL; Potassium 4.1 mmol/L (3.5-5.1); Protein, Total 7.2 g/dL (6.4-8.2); Sodium Level 139 mmol/L (136-145); Triglycerides 161 mg/dL; Very Low Density Lipoprotein 32 mg/dL (5-40)
== END | disposition home or self-care (01) ==
LOC: MFPLAB 12:03
PROVIDERS: PCP Family Medicine; Visit Provider Family Medicine
DX: E78.5 Hyperlipidemia, unspecified (principal)
CPT/HCPCS: 36415; 80053; 80061; 85025

== ENCOUNTER 2023-12-02 17:30 | Outpatient (RCR) | payer SELFPAY | END 2023-12-07 23:59 | LOC: NS 17:30 | PROVIDERS: PCP Family Medicine | DX: Z71.3 Dietary counseling and surveillance (principal) ==

== ENCOUNTER → 2023-12-29 | Outpatient (CLI) | payer MEDICARE, OTHER, SELFPAY ==
--- NOTE | 2023-12-29 12:14 | BI_ITS ---
MAMMOGRAPHY - BILATERAL SCREENING 3-D TOMOSYNTHESIS REASON FOR EXAM: Female, 68 years old. SCREENING PERTINENT HISTORY: No significant family history. TECHNIQUE: 2-D mammograms and 3-D Tomosynthesis of the breast (s) were performed. CAD was performed. COMPARISON: 09/18/2020 FINDINGS: The breast composition is composed of scattered fibroglandular density. Scattered benign calcifications are seen. No dense spiculated masses or suspicious microcalcifications are identified. No architectural distortion is identified. There is no skin thickening or retraction. There has been no significant change since the prior study. BI/SCRN MAMM (CAD)W/AYLIN BILAT IMPRESSION: No mammographic signs of malignancy. Routine yearly mammograms recommended. ASSESSMENT CATEGORY: BIRADS Category 1: Negative. A letter regarding these results will be sent to the patient by the facility within 30 days. FOLLOW UP RECOMMENDATION: Yearly follow up mammogram recommended. (A) Approximately 10% of breast cancers are not detected by mammography. A normal mammogram should not delay biopsy of a clinically suspicious abnormality. Electronically Signed: Guanako Ireland MD at 14:39 EDT ,
== END | disposition home or self-care (01) ==
LOC: OPBI 12:12
PROVIDERS: PCP Family Medicine; Referring Provider Family Medicine; Visit Provider Family Medicine
DX: Z12.31 Encounter for screening mammogram for malignant neoplasm of breast (principal)
CPT/HCPCS: 77063; 77067

== ENCOUNTER → 2024-02-22 | Outpatient (CLI) | payer MEDICARE, OTHER, SELFPAY ==
--- NOTE | 2024-02-22 08:24 | BD_ITS ---
STUDY: DUAL ENERGY X-RAY ABSORPTIOMETRY / DXA REASON FOR EXAM: Female, 68 years old. Screening TECHNIQUE: Bone Mineral Density (BMD) measurements of lumbar spine and bilateral hips were obtained. COMPARISON: None. FINDINGS: Lumbar Spine (L1-L4): g/cm2 (0.951) / T-score (-0.8) / Z-score (1.3) Findings are suggestive of normal bone density with a low fracture risk. Left Femur Total: g/cm2 (0.730) / T-score (-1.7) / Z-score (-0.3) Left Femoral Neck: g/cm2 (0.616) / T-score (-2.1) / Z-score (-0.4) Right Femur Total: g/cm2 (0.720) / T-score (-1.8) / Z-score (-0.4) Right Femoral Neck: g/cm2 (0.676) / T-score (-1.6) / Z-score (0.2) BD/Dexa Bone Density Study IMPRESSION: The patient is considered osteopenic as outlined below according to World [employer] Organization (WHO) criteria with a high fracture risk. Reference Information: The T-score is the number of standard deviations above or below the standard which is normal for young adults at their peak bone mineral density. The World Health Organization (WHO) interprets the T-scores as follows: Above -1 Normal bone density Between -1 and -2.5 Osteopenia Equal to / or below -2.5 Osteoporosis As a practical clinical guideline, osteopenia may be graded as follows: Mild -1 through -1.5 Moderate -1.6 through -2.0 Severe -2.1 through -2.4 The Z-score is the number of standard deviations above or below age-matched controls. A Z-score of less than -1.5 would be considered abnormal. References: 1. NIH Osteoporosis and Related Bone Diseases www osteo.org 2. International Society for Clinical Densitometry www iscd.org 3. National Osteoporosis Foundation www nof.org Electronically Signed: Cordell Dai MD at 9:13 EDT ,
== END | disposition home or self-care (01) ==
PROVIDERS: PCP Family Medicine; Referring Provider Internal Medicine; Visit Provider Internal Medicine
DX: N95.9 Unspecified menopausal and perimenopausal disorder (principal)
CPT/HCPCS: 77080

== ENCOUNTER → 2024-05-10 | Outpatient (CLI) | payer MEDICARE, OTHER, SELFPAY | END | disposition home or self-care (01) | LOC: SL 20:06 | PROVIDERS: PCP Internal Medicine; Referring Provider Internal Medicine; Visit Provider Internal Medicine | DX: G47.10 Hypersomnia, unspecified (principal) | CPT/HCPCS: 95810 ==

== ENCOUNTER → 2024-05-17 | Outpatient (CLI) | payer MEDICARE, OTHER, SELFPAY ==
[2024-05-17 12:41] LABS: Absolute Lymphocyte Count 1.69 X10^3/uL (0.83-4.51); Absolute Neutrophil Count 2.1 X10^3/uL (2.0-7.7); Basophil# 0.06 X10^3/uL; Basophil% 1.4 % (0-1); Eosinophil# 0.09 X10^3/uL; Eosinophils% 2.1 % (0-5); Hematocrit 40.5 % (37-47); Hemoglobin 12.9 g/dL (12.0-15.0); Lymphocyte # 1.69 X10^3/ul (0.83-4.51); Lymphocyte % 39.2 % (19-41); Mean Corp Hgb Conc 31.9 g/dL (32-36); Mean Corpuscular Hgb 30.5 pg (27.0-32.0); Mean Corpuscular Volume 95.7 fL (81-99); Mean Platelet Vol. 10.6 fl (6.2-12.0); Monocyte# 0.42 X10^3/uL; Monocyte% 9.7 % (0-10); NRBC Flagged by Analyzer 0 % (0-5); Neutrophil # 2.05 X10^3/uL (2.7-7.7); Neutrophil % 47.6 % (47-70); Platelet Count 269 K/mm3 (150-450); RBC Distribution Width CV 12.8 % (11.6-14.6); RBC Distribution Width SD 45.5 fl (35.1-43.9); Red Blood Count 4.23 M/mm3 (4.2-5.4); White Blood Count 4.3 K/mm3 (4.4-11.0)
[2024-05-17 13:04] LABS: ALB/GLOB Ratio 1.1 RATIO (0.9-2.4); AST(SGOT) 16 U/L (15-37); Alanine Aminotransfer ALT/SGPT 10 U/L (13-56); Albumin, Serum 3.8 g/dL (3.2-5.0); Alkaline Phosphatase 93 U/L (45-117); Anion Gap 5 (5-15); BUN 13 mg/dL (7-18); BUN/Creat Ratio 14.3 RATIO (10-20); Calcium,Total 9.7 mg/dL (8.5-10.1); Chloride 106 mmol/L (98-107); Cholesterol 230 mg/dL (200); Creatinine, Serum 0.91 mg/dL (0.55-1.02); EST Glomerular Filtration Rate 65 mL/min (>60); Est Glom Filt Rate - Afr Amer 79 mL/min (>60); Globulin 3.5 g/dL (2.2-4.2); Glucose 95 mg/dL (74-106); High Density Lipoprotein 61 mg/dL; Potassium 4.4 mmol/L (3.5-5.1); Protein, Total 7.3 g/dL (6.4-8.2); Sodium Level 140 mmol/L (136-145); Triglycerides 124 mg/dL; Very Low Density Lipoprotein 25 mg/dL (5-40)
== END | disposition home or self-care (01) ==
LOC: BIMLAB 08:48
PROVIDERS: PCP Internal Medicine; Referring Provider Internal Medicine; Visit Provider Internal Medicine
DX: E78.2 Mixed hyperlipidemia (principal); G47.33 Obstructive sleep apnea (adult) (pediatric)
CPT/HCPCS: 36415; 80053; 80061; 85025

== ENCOUNTER → 2025-03-21 | Outpatient (CLI) | payer MEDICARE, OTHER, SELFPAY ==
--- NOTE | 2025-03-21 08:30 | BI_ITS ---
EXAM: SCRN MAMM (CAD)W/AYLIN BILAT DATE: 03/21/2025 CLINICAL HISTORY: F, Age 69 y/o , SCREENING TECHNIQUE: SCRN MAMM (CAD)W/AYLIN BILAT COMPARISON: Prior exam(s) dated 12/29/2023, 09/18/2020, 06/02/2018. FINDINGS: TISSUE DENSITY: There are scattered areas of fibroglandular density. Bilateral Breast Mammographic Findings: No significant masses, calcifications or other abnormalities are identified. BI/SCRN MAMM (CAD)W/AYLIN BILAT IMPRESSION: There is no mammographic evidence of malignancy. OVERALL FINAL ASSESSMENT BI-RADS 1: NEGATIVE. RECOMMENDATION: Routine annual follow-up in 1 Year A letter with findings and recommendations will be mailed to the patient. Reading Location: [id number]
== END | disposition home or self-care (01) ==
LOC: OPBI 08:25
PROVIDERS: PCP Internal Medicine; Referring Provider Internal Medicine; Visit Provider Internal Medicine
DX: Z12.31 Encounter for screening mammogram for malignant neoplasm of breast (principal)
CPT/HCPCS: 77063; 77067

== ENCOUNTER → 2025-05-07 | Outpatient (CLI) | payer MEDICARE, OTHER, SELFPAY ==
[2025-05-07 14:34] LABS: Hematocrit 38.2 % (37-47); Hemoglobin 12.8 g/dL (12.0-15.0); Immature Granulocytes Count 0.010 X10^3/uL (0.0-0.0); Mean Corp Hgb Conc 33.5 g/dL (32-36); Mean Corpuscular Volume 91.2 fL (81-99); Mean Platelet Vol. 10.8 fl (6.2-12.0); NRBC Flagged by Analyzer 0 % (0-5); Platelet Count 234 K/mm3 (150-450); RBC Distribution Width CV 13.3 % (11.6-14.6); RBC Distribution Width SD 44.4 fl (35.1-43.9); Red Blood Count 4.19 M/mm3 (4.2-5.4); White Blood Count 6.3 K/mm3 (4.4-11.0)
[2025-05-07 15:11] LABS: AST(SGOT) 21 U/L (<=31); Alanine Aminotransfer ALT/SGPT 6 U/L (<=34); Albumin, Serum 4.4 g/dL (3.4-4.8); Alkaline Phosphatase 90 U/L (35-104); Anion Gap 12 (5-15); BUN 13 mg/dL (4-19); BUN/Creat Ratio 13.3 RATIO (10-20); Calcium,Total 10.0 mg/dL (7.6-11.0); Carbon Dioxide 23.6 mmol/L (21.0-32.0); Chloride 104 mmol/L (98-108); Cholesterol 178 mg/dL (<=200); Globulin 2.5 g/dL (2.2-4.2); Glucose 85 mg/dL (70-99); Low Density Lipoprotein Calc. 92 mg/dL; Potassium 4.1 mmol/L (3.3-5.1); Triglycerides 105 mg/dL; Very Low Density Lipoprotein 21 mg/dL (5-40); cholesterol:hdl ratio screen 2.72
== END | disposition home or self-care (01) ==
LOC: LAB 13:32
PROVIDERS: PCP Internal Medicine; Referring Provider Internal Medicine; Visit Provider Internal Medicine
DX: E78.2 Mixed hyperlipidemia (principal); N95.9 Unspecified menopausal and perimenopausal disorder; R93.5 Abnormal findings on diagnostic imaging of other abdominal regions, including retroperitoneum
CPT/HCPCS: 36415; 80053; 80061; 85025

== ENCOUNTER → 2025-05-18 | Outpatient (CLI) | payer OTHER, MEDICARE, SELFPAY ==
--- NOTE | 2025-05-18 17:25 | CT_ITS ---
PROCEDURE: CT ABD/PELVIS W/WO CONTRAST 05/18/2025 REASON FOR EXAM: MESENTERIC STRANDING ON PREVIOUS CT TECHNIQUE: Procedure Code: [id number] Modality: CT Procedure: CT ABD/PELVIS W/WO CONTRAST CT of the abdomen and pelvis are performed after the intravenous administration of contrast. Axial sagittal coronal reformatted images are submitted for interpretation. Oral contrast was not administered. CONTRAST: Isovue-300 VOLUME: 98 mL One or more dose reduction techniques were used (e.g., Automated exposure control, adjustment of the mA and/or kV according to patient size, use of iterative reconstruction technique. RADIATION DOSE SUMMARY: DLP: 1244 mGycm COMPARISON: CT of the abdomen and pelvis dated 04/25/2021. FINDINGS: Lung bases: Mild dependent atelectasis Liver: Multiple hypodense lesions in the liver remain relatively stable and likely reflect multiple hepatic cysts. No enhancing solid mass. Patent portal and hepatic veins. Gallbladder: Surgically removed. No biliary ductal dilatation. Spleen: Normal Pancreas: Normal Adrenals: Unremarkable Kidneys: The kidneys enhance symmetrically. There is no stone or nephrolithiasis. No hydronephrosis. Bladder: Unremarkable. Reproductive Organs: Status post hysterectomy. Mild enhancement of the vaginal wall, without a distinct mass . Correlate with physical exam. Bowel: The stomach has a normal appearance. The loops of small bowel are normal. Moderate amount of stool is noted in the colon. Appendix: Not visualized. No inflammatory changes to suggest appendicitis. Lymph nodes: No retroperitoneal lymphadenopathy. Javon mesentery with enlarged lymph nodes which appear increased in size since previous exam. The largest lymph node measured 9 by 18 mm. Previously, this measured 5 by 14 mm. Vasculature: Atherosclerosis of the aorta. Peritoneum/mesentery: Mild javon mesentery. Small lymph nodes. Findings are stable since 2020 and are likely related to Bones: Multilevel degenerative disc disease and facet arthropathy. Mild scoliosis. No abnormality of the abdominal wall. CT/CT Abd/Pelvis W/WO Contrast IMPRESSION: Multiple hepatic cysts. Increase in the size of the lymph nodes in the mesentery with associated mild s tranding. The differential considerations include mesenteric panniculitis or lymphoma. Reading Location: [id number]
== END | disposition home or self-care (01) ==
PROVIDERS: PCP Internal Medicine; Referring Provider Internal Medicine; Visit Provider Internal Medicine
DX: R93.5 Abnormal findings on diagnostic imaging of other abdominal regions, including retroperitoneum (principal)
CPT/HCPCS: 74178; Q9967

== ENCOUNTER → 2025-05-21 | Outpatient (CLI) | payer OTHER, MEDICARE, SELFPAY ==
--- NOTE | 2025-05-21 08:36 | MRI_ITS ---
PROCEDURE: SPINE LUMBAR (ROUTINE) 05/21/2025 REASON FOR EXAM: SCLEROTIC LESION ON L1 PER CT ABD/PELVIS TECHNIQUE: Procedure Code: MRISPL Modality: MR Procedure: SPINE LUMBAR (ROUTINE) COMPARISON: None FINDINGS: There is grade 1 retrolisthesis at L2-3, 0.3 cm. The vertebral body height is maintained. There is Modic fibrotic type endplate change at L2-3. Vertebral body marrow signal is otherwise normal. Intervertebral disc signal shows desiccation. Normal appearing facets are noted. The L1-L2 level: There is moderate central and mild right and left paracentral disk protrusion. There is no lateral recess stenosis or foraminal stenosis. There is no critical central canal stenosis. The L2-L3 level: There is moderate central and right and left paracentral disk protrusion. There is mild right and moderate left recess stenosis stenosis. There is mild left foraminal stenosis. There is mild central canal stenosis. The L3-L4 level: There is moderate central and mild right and left paracentral disk protrusion. There is mild bilateral lateral recess stenosis. There is mild left foraminal stenosis. There is no critical central canal stenosis. The L4-L5 level: There is mild central and right and left paracentral disk protrusion. There is no lateral recess stenosis or foraminal stenosis. There is no critical central canal stenosis. The L5-S1 level: There is mild central and right and left paracentral disk protrusion. There is no lateral recess stenosis or foraminal stenosis. There is no critical central canal stenosis. The visualized conus shows normal signal characteristics. Adjacent soft tissues are unremarkable. MRI/Spine Lumbar (Routine) IMPRESSION: There is grade 1 retrolisthesis at L2-3, 0.3 cm. There is mild central canal stenosis at L2-3, with lateral recess and foraminal narrowing. Reading Location: [id number]
== END | disposition home or self-care (01) ==
PROVIDERS: PCP Internal Medicine; Referring Provider Internal Medicine; Visit Provider Internal Medicine
DX: R93.5 Abnormal findings on diagnostic imaging of other abdominal regions, including retroperitoneum (principal)
CPT/HCPCS: 72148

== ENCOUNTER 2025-08-03 07:00 | Outpatient (RCR) | payer MEDICARE, OTHER, SELFPAY ==
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
--- NOTE | 2025-08-03 07:33 | HP.PTDCSUM ---
Discharge Summary D/C summary: It has been my pleasure to treat PALAK MUHAMMAD referred by SANDRO Gastelum, with the diagnosis of LBP with radiculopathy for a total of 2 visit(s). Discharge Date: Please see the following information for a summary of their discharge status. Subjective Subjective: I was really sore until I took my ibuprophen and stretched Pain LBP: Pain Intensity (Out of 10): 2 Objective Objective/Function: Pt now I with HEP Goals Goal 1:: I with HEP Plan Plan: Discharge to HEP D/C Information d/c sentence: If there are questions or concerns regarding this patient's physical therapy, please feel free to call me at [phone]. Thank you for the referral of this patient. Sincerely, Dom Moses, PT, ATC Balance/Gait/Functional tests Balance/Special Test Scores Oswestry Low Back Score: 19
== END 2025-08-03 08:20 | disposition home or self-care (01) ==
LOC: PT 07:00
PROVIDERS: PCP Internal Medicine; Referring Provider Student in an Organized Health Care Education/Training Program; Visit Provider Student in an Organized Health Care Education/Training Program
DX: M48.062 Spinal stenosis, lumbar region with neurogenic claudication (principal)
CPT/HCPCS: 97110; 97161